=== PATIENT | male | born 1940 | race Caucasian/White ===

== ENCOUNTER → 2021-01-29 | Outpatient (CLI) | payer MEDICARE, BC ==
[~2021-01-29] MED LIST: ACTOS30 MG PO; ASPIRIN EC81 MG PO; BENICAR 20 MG T20 MG PO; CARAFATE 1 GM TA1 GM PO; COLACE 100MG C100 MG PO; COLACE100 MG PO; FLOMAX 0.4 MG0.4 MG PO; FUROSEMIDE40 MG PO; HYDROCODON-ACE1 EAC4 PO; JARDIANCE25 MG PO; LIPITOR TAB 2020 MG PO; LORTAB 7.5-3251 EACH PO; METOPROLOL SUCC25 MG PO; METOPROLOL SUCC50 MG PO; POLYETHYLENE GL17 GM PO; POTASSIUM CHLO20 ME2 PO; PROTONIX40 MG PO; TRUJEO SC; TRULICITY1.5 MG/0.5 SQ; VALSARTAN80 MG PO; ZYLOPRIM 300 M300 MG PO
== END ==
LOC: KOH-I 11:00
DX: R22.1 Localized swelling, mass and lump, neck (principal)
CPT/HCPCS: 76536

== ENCOUNTER → 2021-02-13 | Outpatient (CLI) | payer MEDICARE, BC | LOC: OPSV2 09:00 | PROVIDERS: Surgery | DX: Z01.818 Encounter for other preprocedural examination (principal); I10 Essential (primary) hypertension; E11.9 Type 2 diabetes mellitus without complications | CPT/HCPCS: 36415; 80048; 93005 ==

== ENCOUNTER → 2021-02-19 | Day surgery (SDC) | payer MEDICARE, BC | END | disposition home or self-care (01) | LOC: OR 06:37 | DX: D17.0 Benign lipomatous neoplasm of skin and subcutaneous tissue of head, face and neck (principal); I25.10 Atherosclerotic heart disease of native coronary artery without angina pectoris; I10 Essential (primary) hypertension; K21.9 Gastro-esophageal reflux disease without esophagitis; I25.2 Old myocardial infarction; E11.9 Type 2 diabetes mellitus without complications; E78.5 Hyperlipidemia, unspecified; G47.30 Sleep apnea, unspecified; M19.90 Unspecified osteoarthritis, unspecified site; Z88.1 Allergy status to other antibiotic agents; Z79.899 Other long term (current) drug therapy; Z79.82 Long term (current) use of aspirin; Z95.1 Presence of aortocoronary bypass graft; Z83.3 Family history of diabetes mellitus; Z82.49 Family history of ischemic heart disease and other diseases of the circulatory system; Z80.3 Family history of malignant neoplasm of breast; Z87.891 Personal history of nicotine dependence; Z98.61 Coronary angioplasty status; Z99.81 Dependence on supplemental oxygen; Z91.040 Latex allergy status; Z79.4 Long term (current) use of insulin | CPT/HCPCS: 82962; C1750; C1752; C1769; J0690; J1100; J2001; J2405; J2704; J2710; J3010; J7040; J7120 ==

== ENCOUNTER → 2021-09-10 | Outpatient (CLI) | payer MEDICARE, BC | LOC: HEART 5 11:07 | DX: R06.02 Shortness of breath (principal); R94.2 Abnormal results of pulmonary function studies | CPT/HCPCS: 94060; 94729 ==

== ENCOUNTER → 2021-10-22 | Outpatient (CLI) | payer MEDICARE, BC | LOC: EXRD 15:36 | DX: Z87.891 Personal history of nicotine dependence (principal); R91.8 Other nonspecific abnormal finding of lung field | CPT/HCPCS: 71046 ==

== ENCOUNTER 2022-01-09 15:03 | Emergency (ER) | payer MEDICARE, BC ==
[2022-01-09 15:34] LABS: HEMOGLOBIN 16.4 gm/dl (14.0-17.5); RED BLOOD COUNT 5.02 M/UL (4.20-5.50); WHITE BLOOD COUNT 6.5 K/UL (4.5-11.0)
== END 2022-01-09 18:05 | disposition home or self-care (01) ==
LOC: ER1 15:03
PROVIDERS: Student in an Organized Health Care Education/Training Program
DX: S01.511A Laceration without foreign body of lip, initial encounter (principal); W22.8XXA Striking against or struck by other objects, initial encounter; Y93.9 Activity, unspecified; Y92.009 Unspecified place in unspecified non-institutional (private) residence as the place of occurrence of the external cause
CPT/HCPCS: 12011; 70450; 70486; 71045; 72125; 80053; 82550; 82553; 84484; 85025; 93005; 99284

== ENCOUNTER → 2022-01-21 | Outpatient (CLI) | payer MEDICARE | LOC: KOH-I 13:49 | DX: R05.3 Chronic cough (principal) | CPT/HCPCS: 71250 ==

== ENCOUNTER 2022-03-13 15:17 | Inpatient (IN) | payer MEDICARE, BC ==
[~2022-03-13] VITALS: Ht 180.3 cm; Wt 95.3 kg
[~2022-03-13 15:17] MED LIST changes: -LIPITOR TAB 2020 MG PO; +LIPITOR40 MG PO
[2022-03-13 15:46] LABS: HEMOGLOBIN 15.4 gm/dl (14.0-17.5); RED BLOOD COUNT 4.67 M/UL (4.20-5.50); WHITE BLOOD COUNT 13.9 K/UL (4.5-11.0)
[2022-03-13 16:25] LABS: BUN/CREATININE RATIO 21 (0-10)
[2022-03-14 04:40] LABS: KPC-CARBAPENEM-RESISTANCE GENE Not Detected (Negative); vanA/B (VANCOMYCIN RESIST GENE Not Detected (Negative)
[2022-03-14 04:41] LABS: CANDIDA ALBICANS Not Detected (Negative); CANDIDA KRUSEI Not Detected (Negative); CANDIDA TROPICALIS Not Detected (Negative); ESCHERICHIA COLI Not Detected (Negative); HAEMOPHILUS INFLUENZAE Not Detected (Negative); KLEBSIELLA OXYTOCA Not Detected (Negative); KLEBSIELLA PNEUMONIAE Not Detected (Negative); PROTEUS Not Detected (Negative); PSEUDOMONAS AERUGINOSA Not Detected (Negative); SERRATIA MARCESANS Not Detected (Negative); STAPHYLOCOCCUS Not Detected (Negative); STAPHYLOCOCCUS AUREUS Not Detected (Negative); STREP AGALACTIAE (GROUP B) Not Detected (Negative); STREP PYOGENES (GROUP A) Not Detected (Negative)
[2022-03-14 05:58] LABS: STREPTOCOCCUS DETECTED (Negative)
[2022-03-14 06:45] LABS: HEMOGLOBIN 14.2 gm/dl (14.0-17.5); RED BLOOD COUNT 4.37 M/UL (4.20-5.50)
[2022-03-14 06:46] LABS: WHITE BLOOD COUNT 9.6 K/UL (4.5-11.0)
[2022-03-14 07:04] LABS: BUN/CREATININE RATIO 22 (0-10)
[2022-03-14] MEDS ORDERED: TOUJEO MAX300 UNIT/1 SQ (09:56)
[2022-03-14] MEDS ORDERED: FLONASE 0.05% N16 GM (09:58)
[2022-03-14] MEDS ORDERED: AZELASTINE137 MCG/0. (09:59)
[2022-03-14] MEDS ORDERED: SPIRONOLACTONE25 MG PO (10:00)
[2022-03-14] MEDS ORDERED: SYMBICORT 16010.2 GM INH (10:01)
[2022-03-14] MEDS ORDERED: FUROSEMIDE40 MG PO (10:02)
[2022-03-16 08:01] LABS: HEMOGLOBIN 12.8 gm/dl (14.0-17.5); RED BLOOD COUNT 4.03 M/UL (4.20-5.50)
[2022-03-16 08:02] LABS: WHITE BLOOD COUNT 3.9 K/UL (4.5-11.0)
[2022-03-16 08:18] LABS: BUN/CREATININE RATIO 18 (0-10)
[2022-03-17 06:33] LABS: HEMOGLOBIN 13.1 gm/dl (14.0-17.5); RED BLOOD COUNT 4.13 M/UL (4.20-5.50); WHITE BLOOD COUNT 4.1 K/UL (4.5-11.0)
[2022-03-17 06:49] LABS: BUN/CREATININE RATIO 17 (0-10)
[2022-03-17 15:12] LABS: L. PNEUMOPHILA SEROGP 1 UR AG Negative (Negative)
[2022-03-19 07:33] LABS: HEMOGLOBIN 13.2 gm/dl (14.0-17.5); RED BLOOD COUNT 4.29 M/UL (4.20-5.50); WHITE BLOOD COUNT 4.6 K/UL (4.5-11.0)
[2022-03-19 07:53] LABS: BUN/CREATININE RATIO 16 (0-10)
[2022-03-19] MEDS ORDERED: ALDACTONE 25MG25 MG PO (16:54)
[2022-03-19] MEDS ORDERED: ATORVASTATIN CA20 MG PO (16:54)
[2022-03-19] MEDS ORDERED: CEFTRIAXON2 GM/50 ML IV (16:54)
[2022-03-19] MEDS ORDERED: PROTONIX 40 MG40 M1 PO (16:54)
[2022-03-19] MEDS ORDERED: ASPIRIN EC81 MG PO (16:56)
[2022-03-19] MEDS ORDERED: TOPROL XL25 MG PO (16:56)
== END 2022-03-19 18:33 | disposition home or self-care (01) | DRG 871 ==
LOC: ER1 15:17 → MED SURG 4 17:39 → CDU 17:39 → MED SURG 4 20:00
PROVIDERS: Emergency Medicine; Internal Medicine; Physician Assistant; ADMIT Internal Medicine
DX: A40.3 Sepsis due to Streptococcus pneumoniae (principal); J13 Pneumonia due to Streptococcus pneumoniae; J96.01 Acute respiratory failure with hypoxia; Z20.822 Contact with and (suspected) exposure to COVID-19; I47.1 Supraventricular tachycardia; E11.9 Type 2 diabetes mellitus without complications; E78.5 Hyperlipidemia, unspecified; K21.9 Gastro-esophageal reflux disease without esophagitis; G47.33 Obstructive sleep apnea (adult) (pediatric); I48.0 Paroxysmal atrial fibrillation; I25.10 Atherosclerotic heart disease of native coronary artery without angina pectoris; N40.0 Benign prostatic hyperplasia without lower urinary tract symptoms; J45.909 Unspecified asthma, uncomplicated; Z79.01 Long term (current) use of anticoagulants; Z79.82 Long term (current) use of aspirin; Z95.1 Presence of aortocoronary bypass graft; Z95.5 Presence of coronary angioplasty implant and graft; Z88.1 Allergy status to other antibiotic agents; I25.2 Old myocardial infarction; Z98.890 Other specified postprocedural states
CPT/HCPCS: 0240U; 36415; 36600; 71045; 71275; 80048; 80053; 81001; 82550; 82553; 82803; 82962; 83605; 83735; 83880; 84484; 85025; 87040; 87070; 87077; 87081; 87150; 87186; 87205; 87278; 87899; 93005; 94640; 94664; 94760; 96374; 99285; C1751; J0456; J0696; J1650; J7030; Q9967

== ENCOUNTER → 2022-04-29 | Outpatient (CLI) | payer MEDICARE, BC ==
[~2022-04-29] MED LIST changes: +ALDACTONE 25MG25 MG PO; +ATORVASTATIN CA20 MG PO; +AZELASTINE137 MCG/0.; +CEFTRIAXON2 GM/50 ML IV; +FLONASE 0.05% N16 GM; +PROTONIX 40 MG40 M1 PO; +SPIRONOLACTONE25 MG PO; +SYMBICORT 16010.2 GM INH; +TOPROL XL25 MG PO; +TOUJEO MAX300 UNIT/1 SQ
== END ==
LOC: KOH-I 10:32
DX: J18.9 Pneumonia, unspecified organism (principal)
CPT/HCPCS: 71046